=== PATIENT | male | born 2000 | race Caucasian/White ===

== ENCOUNTER 2023-10-10 18:23 | Emergency (ER) | payer BC, SELFPAY ==
--- NOTE | ~2023-10-10 | XR_ITS ---
Lumbosacral Spine: AP and lateral views Clinical History: Pain Findings: The normal lordotic curve is maintained. The vertebral bodies and posterior elements are i ntact. The intervertebral disc spaces are preserved. The sacroiliac joints are normally outlined. Impression: No significant abnormality. Reviewed, dictated and finalized at [facility]. ARTIST Impression: No significant abnormality.
[2023-10-10 18:31] VITALS: BP 137/78; PULSE 77; RESP 18; TEMP 36.9; O2SAT 100
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
== END 2023-10-10 19:30 | disposition home or self-care (01) ==
PROVIDERS: Emergency Provider Nurse Practitioner Family
DX: S39.012A Strain of muscle, fascia and tendon of lower back, initial encounter (principal); S16.1XXA Strain of muscle, fascia and tendon at neck level, initial encounter; V49.40XA Driver injured in collision with unspecified motor vehicles in traffic accident, initial encounter
CPT/HCPCS: 72100; 99213; G0463

== ENCOUNTER 2024-12-23 23:55 | Emergency (ER) | payer BC, SELFPAY ==
--- NOTE | ~2024-12-23 | CT_ITS ---
EXAMINATION: CT abdomen pelvis w con DATE: 12/24/2024 01:33 INDICATION: Right lower quadrant abdominal pain radiating to the testis TECHNIQUE: Computed tomography (CT) of the abdomen and pelvis was performed with 100 mL Omnipaque-350 intravenous contrast. Automated exposure control and iterative reconstruction technique were employe d. The dose-length product was 472.54 mGy-cm. COMPARISON: None FINDINGS: Lung bases are clear. Heart size is normal. No pericardial or pleural effusion. Liver, gallbladder, s pleen, pancreas, bilateral adrenal glands and kidneys are normal. Bowels including the appendix are n ormal. Bladder is normal but with subtle stranding in the surrounding fat.. Prostatomegaly measuring approximately 5.2 x 5.0 x 4.1 cm. Minimal ascites in the deep pelvis. No abscess or free intraperiton eal gas. No pathologically enlarged abdominal or pelvic lymphadenopathy. Mild to moderate lumbar disc height loss most prominent at L4-L5. IMPRESSION: 1. Prostatomegaly, atypical for age with stranding in the fat surrounding the bladder and small amoun t of reactive ascites in the deep pelvis is concerning for possible prostatitis and/or cystitis.. Cor relate with urinalysis. Reviewed, dictated and finalized at location A. IMPRESSION: 1. Prostatomegaly, atypical for age with stranding in the fat surrounding the b ladder and small amount of reactive ascites in the deep pelvis is concerning fo r possible prostatitis and/or cystitis.. Correlate with urinalysis.
--- NOTE | ~2024-12-23 | US_ITS ---
EXAMINATION: US scrotum doppler DATE: 12/24/2024 02:29 INDICATION: Right testicular pain TECHNIQUE: Testicular sonogram utilizing grayscale and Doppler COMPARISON: None. FINDINGS: The right testis measures 4.7 x 2.7 x 3.2 cm. The left testis measures 4.7 x 2.7 x 3.2 cm. Symmetric normal grayscale appearance to both testes. There is normal vascular flow to both testes. The right e pididymis is normal with normal vascular flow. The left epididymis is normal with normal vascular kiel w. There is no hydrocele. Mild left varicocele with vessels dilated to 3 mm. IMPRESSION: 1. Mild left varicocele. Otherwise normal scrotal ultrasound Reviewed, dictated and finalized at location A.
[2024-12-23 23:56] VITALS: BP 124/74; PULSE 101; RESP 20; TEMP 36.4; O2SAT 100
--- OUTSIDE RECORDS SUMMARY | 2024-12-23 23:57 | XMS_ITS | Continuity of Care Document ---
Author Organization [facility] Address [address] [place] [address] Phone Care Team Providers Care Animal Behaviourist Name Role Phone Sparrow OD, Shadi Unavailable Unavailable Procedures Procedure Date Eye Exam & Treatment Refraction Advance Directives Directive Yes / No Effective Date File Name No Information Encounters Encounter Description Practice Location Reason(s) For Visit Diagnoses Date Provider Providers Copied on Encounter [facility], [address], [place], [place], [id number], [place] tel:[phone] [facility] No Information Oct- 5-201 0 Sparrow OD Shadi. [address] , [address], [place], [address], [place]. tel:[phone] Family History Family Member Type Diagnosis Age At Onset No Information Payers Payer name Insurance type Covered green party ID Authoriza tishanthi(s) [employer] Plan [id number] Social History Type Description Quantity Date Captured [...]
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
--- OUTSIDE RECORDS SUMMARY | 2024-12-23 23:57 | XMS_ITS | Referral Summary ---
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
[2024-12-24 00:28] LABS: Basophils Percent Auto 0.5 % (0.2-1.2); Eosinophils Absolute Auto 0.1 K/mm3 (0-0.3); Eosinophils Percent Auto 1.2 % (0-4.4); Hematocrit 42.1 % (42.0-52.0); Immature Granulocyte Absolute 0.03 K/mm3 (0.00-0.031); Immature Granulocyte Percent A 0.4 % (0-0.5); Lymphocytes Absolute Auto 1.86 K/mm3 (0.9-3.2); Mean Corpuscular HGB Conc 33.3 g/dl (32-36); Mean Corpuscular Hemoglobin 30.2 pg (26-34); Mean Corpuscular Volume 90.9 fl (80-100); Mean Platelet Volume 12.5 fl (7.4-10.4); Monocytes Absolute Auto 0.5 K/mm3 (0.1-0.6); Monocytes Percent Auto 6.6 % (2.6-8.5); Neutrophils Absolute Auto 5.5 K/mm3 (1.3-6.7); Neutrophils Percent Auto 68.3 % (45.5-73.1); Platelet Count Result 127 k/mm3 (150-375); Red Blood Count 4.63 M/mm3 (4.6-6.20); Red Cell Distribution Width 12.7 % (11.5-14.5); White Blood Count 8.1 K/mm3 (4.5-10.0)
[2024-12-24 00:31] LABS: Add Urine Microscopic? YES; Appearance Urine Clear (Clear); Bacteria Urine None Seen /hpf; Bilirubin Urine Negative (Negative); Blood Urine Negative (Negative); Color Urine Yellow (Yellow); Glucose Urine UA Negative (Negative); Ketones Urine Negative (Negative); Leukocyte Esterase Ur Negative LEU/UL (Negative); Nitrate Urine Negative (Negative); Non Pathogenic Casts 0-2; Protein Urine Trace mg/dL (Negative); RBC Urine 0-2 /hpf (0-2); Specific Grav Ur 1.023 (1.001-1.035); Squamous Epithelial Cell Urine None Seen /hpf (Few); WBC Urine 0-5 /hpf (0-3); pH Urine 8.5 (5.0-9.0)
[2024-12-24 00:46] LABS: Alanine Aminotransferase 13 U/L (6-50); Albumin Level 4.8 g/dL (3.5-5.1); Alkaline Phosphatase 46 U/L (38-126); Anion Gap 10 mmol/L (4-12); Aspartate Amino Transferase 24 U/L (17-59); Bilirubin,Total 0.9 mg/dL (0.2-1.3); Blood Urea Nitrogen 12 mg/dL (9-20); Calcium 8.9 mg/dL (8.4-10.2); Carbon Dioxide 28 mmol/L (22-30); Chloride 103 mmol/L (98-107); Estimated CRCL calculation 118 ml/min; Estimated Glomerular Filt Rate > 60; Glucose 94 mg/dL (65-110); Lipase 40 U/L (23-300); Potassium 3.8 mmol/L (3.4-5.0); Sodium 141 mmol/L (137-145)
--- OUTSIDE RECORDS SUMMARY | 2024-12-24 00:47 | XMS_ITS | Referral Summary ---
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
--- OUTSIDE RECORDS SUMMARY | 2024-12-24 00:47 | XMS_ITS | Clinical Summary ---
Author Organization [facility] Address [address] [address] Care Team Providers Care Organ Pipe Finisher Name Role Phone Monisha Argueta MD Primary Care Provider [phone] Source Comments [facility],non-owned Affiliates and Associated Physician Practices is amultiple site organization consisting of ambulatory clinics and hospital sitesin [place], [place], [place] and [place]. This disclosure is being madepursuant to the Care Everywhere program and may not contain all information available regarding this patient. 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
--- OUTSIDE RECORDS SUMMARY | 2024-12-24 00:47 | XMS_ITS | Clinical Summary ---
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
--- OUTSIDE RECORDS SUMMARY | 2024-12-24 00:47 | XMS_ITS | Continuity of Care Document ---
Author Organization [facility] Address [address] [place] [address] Phone Care Team Providers Care Dye Line Operator Name Role Phone Sparrow OD, Shadi Unavailable Unavailable Procedures Procedure Date Eye Exam & Treatment Refraction Advance Directives Directive Yes / No Effective Date File Name No Information Encounters Encounter Description Practice Location Reason(s) For Visit Diagnoses Date Provider Providers Copied on Encounter [facility], [address], [place], [place], [id number], [place] tel:[phone] [facility] No Information Oct- 5-201 0 Sparrow OD Shadi. [address], [place], [address], [place]. tel:[phone] Family History Family Member Type Diagnosis Age At Onset No Information Payers Payer name Insurance type Covered green party ID Authoriza tishanthi(s) [employer] Plan [id number] Social History Type Description Quantity Date Captured [...]
--- NOTE | 2024-12-24 04:00 | ED_ITS ---
HPI - General Adult General Chief complaint: Abdominal Pain Stated complaint: stomach pain Time Seen by Provider: 12/24/24 00:02 History of Present Illness HPI narrative: This is a 24-year-old male presenting ED with chief complaint abdominal pain. Patient said he developed pain yesterday went work. Is a intermittently dull and stabbing primarily the right side. Sometimes radiates to his right testicle. It is moderate in intensity comes and goes. He has never had pain like this before. No exacerbating alleviating factors. Associated with some nausea but no vomiting. Denies fevers chills chest pain breathing urinary symptoms or concern for STDs Related Data Allergies Allergy/AdvReac Type Severity Reaction Status Date / Time Penicillins Allergy Unknown Verified 12/23/24 23:56 Exam 2 Narrative: APPEARANCE: No apparent distress. Head: atraumatic. EYES: EOMI, NOSE: Atraumatic NECK: Trachea midline RESPIRATORY: No increased rate of breathing CARDIOVASCULAR: RRR, ABDOMINAL: Soft nontender no guarding or rebound no CVA tenderness exam: Normal external genitalia, normal lie of right testicle tenderness to the posterior aspect. Cremasteric reflex intact. And sign negative. MUSCULOSKELETAl: No obvious deformities NEURO: Alert. Moving 4/4 extremities SKIN:: Warm, dry. Normal color PSYCHIATRIC: Normal affect Course Vital Signs Vital signs: Vital Signs Temperature 97.6 F 12/23/24 23:56 Pulse Rate 101 H 12/23/24 23:56 Respiratory Rate 20 12/23/24 23:56 Blood Pressure 124/74 12/23/24 23:56 Pulse Oximetry 100 12/23/24 23:56 Oxygen Delivery Room Air 12/23/24 23:56 Temperature 97.6 F 12/23/24 23:56 Pulse Rate 101 H 12/23/24 23:56 Respiratory Rate 20 12/23/24 23:56 Blood Pressure 124/74 12/23/24 23:56 Pulse Oximetry 100 12/23/24 23:56 Oxygen Delivery Room Air 12/23/24 23:56 Medical Decision Making [facility] Narrative Medical decision making narrative: -Course: 24-year-old male presenting right abdominal pain and testicular pain. CT abdomen pelvis showed some mildly distended loops of bowel consistent with enteritis. No appendicitis kidney stones or other findings. Scrotal ultrasound negative for torsion. On re-evaluation patient improved without intervention. He has no resting comfortably in bed complaints. Does have some posterior tenderness on his testicle which may represent epididymitis. Be discharged with Motrin Tylenol and a course of antibiotics. He will be given Urology follow-up. Given return precautions for fevers severe abdominal pain testicle pain or any new or worsening symptoms. -DDX includes but is not limited to: Gastroenteritis, colitis, appendicitis, gallbladder disease, urinary tract infection Vital Signs Vital Signs: Vital Signs Temperature 97.6 F 12/23/24 23:56 Pulse Rate 101 H 12/23/24 23:56 Respiratory Rate 20 12/23/24 23:56 Blood Pressure 124/74 12/23/24 23:56 Pulse Oximetry 100 12/23/24 23:56 Oxygen Delivery Room Air 12/23/24 23:56 Temperature 97.6 F 12/23/24 23:56 Pulse Rate 101 H 12/23/24 23:56 Respiratory Rate 20 12/23/24 23:56 Blood Pressure 124/74 12/23/24 23:56 Pulse Oximetry 100 12/23/24 23:56 Oxygen Delivery Room Air 12/23/24 23:56 Lab Data 12/24/24 00:20 12/24/24 00:20 Labs: Lab Results 12/24/24 Range/Units 00:20 WBC 8.1 (4.5-10.0) K/mm3 RBC 4.63 (4.6-6.20) M/mm3 Hgb 14.0 (14.0-18.0) g/dL Hct 42.1 (42.0-52.0) % MCV 90.9 (80-100) fl MCH 30.2 (26-34) pg MCHC 33.3 (32-36) g/dl RDW 12.7 (11.5-14.5) % Plt Count 127 L (150-375) k/mm3 MPV 12.5 H (7.4-10.4) fl Immature Gran % (Auto) 0.4 (0-0.5) % Neut % (Auto) 68.3 (45.5-73.1) % Lymph % (Auto) 23.0 (18.3-44.2) % [place] % (Auto) 6.6 (2.6-8.5) % Eos % (Auto) 1.2 (0-4.4) % Baso % (Auto) 0.5 (0.2-1.2) % Lymph # (Auto) 1.86 (0.9-3.2) K/mm3 [place] # (Auto) 0.5 (0.1-0.6) K/mm3 Eos # (Auto) 0.1 (0-0.3) K/mm3 Baso # (Auto) 0.0 (0.0-0.1) K/mm3 Abs Immat Gran (auto) 0.03 (0.00-0.031) K/mm3 Absolute Neuts (auto) 5.5 (1.3-6.7) K/mm3 Absolute Nucleated RBC 0.000 (0.0-0.012) K/mm3 Nucleated RBC % 0.0 (0.0-0.2) % Sodium 141 (137-145) mmol/L Potassium 3.8 (3.4-5.0) mmol/L Chloride 103 (98-107) mmol/L Carbon Dioxide 28 (22-30) mmol/L Anion Gap 10 (4-12) mmol/L BUN 12 (9-20) mg/dL Creatinine 0.88 (0.7-1.3) mg/dL Estim Creat Clear Calc 118 ml/min Estimated GFR > 60 (59 - ) Glucose 94 (65-110) mg/dL Calcium 8.9 (8.4-10.2) mg/dL Total Bilirubin 0.9 (0.2-1.3) mg/dL AST 24 (17-59) U/L ALT 13 (6-50) U/L Alkaline Phosphatase 46 (38-126) U/L Total Protein 7.0 (6.3-8.2) g/dL Albumin 4.8 (3.5-5.1) g/dL Lipase 40 (23-300) U/L Urine Color Yellow (Yellow) Urine Appearance Clear (Clear) Urine pH 8.5 (5.0-9.0) Ur Specific [place] 1.023 (1.001-1.035) Urine Protein Trace (Negative) mg/dL Urine Glucose (UA) Negative (Negative) mg/dL Urine Ketones Negative (Negative) mg/dL Ur Blood (Man) Negative (Negative) Urine Nitrate Negative (Negative) Urine Bilirubin Negative (Negative) Urine Urobilinogen 1.0 (<2.0) mg/dL Leukocyte Esterase Rfl Negative (Negative) MEENA/UL Urine RBC 0-2 (0-2) /hpf Urine WBC 0-5 (0-3) /hpf Ur Squamous Epith Cells None seen (Few) /hpf Urine Bacteria None seen /hpf Urine Casts 0-2 Discharge Plan Discharge Clinical Impression: Abdominal pain, Pain in testicle Patient Disposition: Home Condition: Stable Instructions: Antibiotic Form, Abdominal Pain (ED) Additional Instructions: You were seen in the emergency department for abdominal pain and testicle pain. Your imaging of the abdomen and testicles was reassuring. Please can use Motrin and Tylenol for pain. Please complete a course of antibiotics and follow-up with the urologist listed below. Return if you develop fevers, severe abdominal pain, testicle pain or any new worsening symptoms. Patient Language: Serbian Prescriptions: New levofloxacin 500 mg tablet 500 mg PO DAILY Qty: 10 0RF acetaminophen 500 mg tablet 1,000 mg PO TID PRN (Reason: sidra) 7 Days Qty: 42 0RF ibuprofen 800 mg tablet 800 mg PO TID PRN (Reason: pain) 7 Days Qty: 21 0RF No Action methocarbamol 500 mg tablet 500 mg PO Q6H PRN (Reason: muscle pain/spasm) Qty: 30 0RF ibuprofen 600 mg tablet 600 mg PO Q6H PRN (Reason: pain) Qty: 30 0RF Follow-up/Referrals: PHYSICIAN,SUPERVISOR [employer]LESS [employer]HICLE [Primary Care Provider] - Arnoldo Abdi MD [Physician] - 1 Week (Testicle pain )
[2024-12-24] MEDS: cefTRIAXone 1 GM VIAL 0.5 GM IM (04:26)
[2024-12-24] MEDS: LIDOCAINE 1% LOCAL INJ 10 ML VIAL (04:26)
[2024-12-24 05:46] LABS: Chlamydia trachomatis NOT DETECTED (NOT DETECTE); Neisseria gonorrhoeae PCR NOT DETECTED (NOT DETECTE)
[2024-12-24 07:20] LABS: Trichomonas Vag PCR NOT DETECTED (NOT DETECTE)
== END 2024-12-24 04:35 | disposition home or self-care (01) ==
PROVIDERS: Emergency Provider Emergency Medicine
DX: R10.9 Unspecified abdominal pain (principal); N50.811 Right testicular pain
CPT/HCPCS: 36415; 74177; 76870; 80053; 81001; 83690; 85025; 87491; 87591; 87661; 93976; 96372; 99284; J0696; J2003; Q9967

== ENCOUNTER 2025-04-24 12:12 | Outpatient (CLI) | payer BC, SELFPAY ==
--- OUTSIDE RECORDS SUMMARY | 2009-11-22 10:30 | XMS_ITS | Continuity of Care Document ---
Author Organization [facility] Address [address] [place] [address] Phone Care Team Providers Care Explosion Welder Name Role Phone Sparrow OD, Shadi Unavailable Unavailable Procedures Procedure Date Eye Exam & Treatment Refraction Advance Directives Directive Yes / No Effective Date File Name No Information Encounters Encounter Description Practice Location Reason(s) For Visit Diagnoses Date Provider Providers Copied on Encounter [facility], [address], [place], [place], [id number], [place] tel:[phone] [facility] No Information Oct- 5-201 0 Sparrow OD Shadi. [address] , [address], [place], [address], [place]. tel:[phone] Family History Family Member Type Diagnosis Age At Onset No Information Payers Payer name Insurance type Covered constitution party ID Authoriza tishanthi(s) [employer] Plan [id number] Social History Type Description Quantity Date Captured Comments Sex Male Smoking Status No Information Chief Complaint And Reason For Visit No Information Reason For Referral Reason For Referral No Information History Of Present Illness Encounter Date Complaint History Of Prese nt Illness No Information Functional Status Date Functional Assessmen t No Information Instructions Date Instruction Additional Infor mation No Information Assessments Type Assessment Date No Information Patient Care Teams Name Effective Dates (start - stop) Status Members No Information
--- OUTSIDE RECORDS SUMMARY | 2025-04-24 12:28 | XMS_ITS | Clinical Summary ---
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 Gender Identity Not on file Sexual [...] 3:17 PM CDT Height 188 cm (6' 2) 2023 3:17 PM CDT Body Mass Index [...] 01/05/2008, 04/09/2004, Additional history exists Influenza Vaccine (#1) 2025 07/25/2019 Hepatitis B Screening Completed 01/05/2004 , 01/05/2004, 04/10/2003, Additional history exists Pneumococcal vaccine <65 Completed 004, 06/12/2003, 04/10/2003, Additional history exists Varicella Vaccines Completed 01/05/2008, 04/09/2004 [place] Care Teams Frame Straightener Relationship Specialty Start Date End Date Monisha Argueta MD [address] [place] [address] PCP - General Pediatrics 11/10/18
--- OUTSIDE RECORDS SUMMARY | 2025-04-24 12:28 | XMS_ITS | Clinical Summary ---
Author Organization [facility] [employer] Address [address] [place] [address] Care Team Providers Care Gas Mask Inspector Name Role Phone Monisha Argueta MD Primary Care Provider Source Comments [facility],non-owned Affiliates and Associated Physician Practices is amultiple site organization consisting of ambulatory clinics and hospital sitesin [place], [place], [place] and [place]. This disclosure is being madepursuant to the Care Everywhere program and may not contain all information available regarding this patient. 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 Gender Identity Not on file Sexual Orientation [...] season) 2024 DEPRESSION SCREENING 08/31/2024 INFLUENZA VACCINE (#1) 2025 ZOSTER VACCINE (1 of 2) 2052 HIB VACCINE Aged Out No longer eligi ble based on patient's age to complete this topic MENINGOCOCCAL GROUPS A/C/Y/W VACCINE Aged Out No longer eligible b ased on patient's age to complete this topic PNEUMOCOCCAL VACCINE Aged Out No long er eligible based on patient's age to complete this topic Insurance RAMÓN ANTHEM ANTHEM Care Teams Gas Mask Inspector Relationship Specialty Start Date End Date Monisha Argueta MD [address] [place] [address] PCP - General Pediatrics 06/25/18
== END 2025-04-24 12:13 | disposition home or self-care (01) ==
LOC: ANHSURGERY 12:17
PROVIDERS: Visit Provider Surgery
DX: Q64.4 Malformation of urachus (principal)
CPT/HCPCS: 36415; 86850; 86900; 86901

== ENCOUNTER 2025-04-26 00:19 | Day surgery (SDC) | payer BC, SELFPAY ==
--- NOTE | 2025-04-21 15:13 | PC.NURSE ---
Report to the Outpatient Waiting Room, entrance under the green pavilion located off [facility], at time __10:30 AM on date ___04/26/25____. Planned Procedure Time: _12:300 PM .? Time changes happen often and if your time is changed the preop area will call you the afternoon before. - You and your visitor will be asked to self-screen and do not enter if you have any COVID symptoms. Please call surgeon if you need to reschedule. - A mask is optional within the hospital at this time. Patients may have clear liquids (water, carbonated beverages, clear teas, apple juice) until 3 hours prior to surgery ( 9:30 AM) with a maximum of 20 ounces. - No food from midnight until time of surgery and no smoking, or chewing tobacco (or any form of nicotine). No chewing gum, candy or mints. Take only the following medications with a SIP of water on the morning of surgery: NONE DO NOT STOP ANY OF YOUR OTHER PRESCRIPTION MEDICATIONS PRIOR TO SURGERY EXCEPT THE FOLLOWING Hold all vitamins and supplements for 3 days per anesthesiologist. Medications to discontinue per physician NONE Please no make-up, nail citizen of [place], hairspray, perfume, deodorant, or body powder the day of surgery.? No jewelry (including any body piercings) or valuables the day of surgery, leave them at home.? Please take a shower or bath the night before, or the morning of, surgery with an antibacterial soap.? Wear comfortable, loose fitting clothing.? Children are encouraged to wear pajamas. - Jewelry must be removed prior to entering the operating room.? Rings and piercings that are not removed may be cut off. - The hospital will not accept responsibility for valuables.? - Please leave all valuables, including medications, at home the day of surgery. If you are going home after surgery, a licensed tow truck driver must drive you home.? - NO public transportation without another adult if you receive anesthesia. - We recommend that an adult stay with you for 24 hours following discharge. - We also recommend that you do not drive, make important decision, drink alcoholic beverages, or take any drugs that were not prescribed by your health care provider for at least 24 hours after your discharge time. For Pediatric surgeries, we recommend two adults accompany the child home. Follow any additional instructions given to you from your surgeon. Telephone instructions given to __PATIENT and asked if any additional questions and then verbalized understanding. Patient advised to call surgeon office or pre surgery nurse liaison [phone] if any additional questions.
[2025-04-21 15:20] VITALS: BMI 20.5
--- NOTE | 2025-04-25 13:51 | P.SS_ITS ---
Same Day Admit/Disch: HPI History of Present Illness Chief complaint: Urachal Cyst Narrative: Yehuda Goldberg is a 24 year old male Who was experiencing umbilical drainage along with lower abdominal pain and testicular pain last November. He went to the emergency room on December [address] scan was done. This showed some suggestion of prostatitis but also showed an abdominal wall mass just deep to the umbilicus that was calcified. Patient had a scrotal ultrasound which was negative for torsion and showed a mild left varicocele. Patient has seen urology, Dr. Ten Adrian, who felt the abdominal wall mass to be a urachal cyst. He did not feel that the urachal cyst communicated with the urinary bladder. The patient was then referred to me. Patient states he had the severe abdominal and testicular pain for 1-2 weeks along with drainage from umbilicus. He reports the pain and drainage has since improved and is only intermittent. I reviewed the CT scan and the cystic lesion appears to be about 2.5 cm in craniocaudad dimension and 1 cm wide. Patient is taken to surgery now for robotic laparoscopic removal of urachal cyst. [facility] Surgical History Surgical History Hx of tonsillectomy 2008 Family History Family History Mother Hypertension Grandparent Hypertension Social History Social History Smoking status: Never smoker Alcohol intake: current Drinks per week: 4 Alcohol use details: ONE DRINK/MONTH Substance use: never Substance use type: does not use Do You Feel Safe in your Home?: Yes Lack of Transportation: No Lack of Food: Never True Current Housing: I Have Housing Concerned About Future Housing: Decline to Answer Difficulty Paying Gas/Electric Bills: Decline to Answer Difficulty Paying for Meds: Decline to Answer Currently Unemployed: No Education: High School Diploma/GED Difficulty w/ Childcare or Family Care: No Living arrangements: with family Occupation/Education: occupation Spiritual care concerns: No Agree to blood products: Yes Same Day Admit/Disch: Med Pre-admit Medications Home Medications ?Medication ?Instructions ?Recorded ?Confirmed ?Type ketorolac 10 mg tablet 10 mg PO Q6H 4 days #16 tabs 04/26/25 Rx oxycodone-acetaminophen 5 mg-325 0.5 - 1 tablet PO Q4H PRN pain #14 04/26/25 Rx mg tablet (Percocet) tabs Review of Systems Review of Systems All systems reviewed & are unremarkable except as noted in HPI and below ( HPI) Exam Const: General: comfortable, no acute distress, alert and awake Nutritional Appearance: well nourished and thin HENMT: Head: normocephalic and atraumatic Mouth: Yes Normal oral and palatal mucosa present Eyes: Conjunctivae: conjunctivae normal Pupils: Equal, round and reactive pupils present EOM: EOMs intact bilaterally Neck: Neck: normal visual inspection, no lymphadenopathy and nontender Resp: Effort & Inspection: normal respiratory effort Auscultation: clear to auscultation bilaterally Cardio: Rate: regular rate Rhythm: regular rhythm Heart sounds: no gallops, no murmurs and no rubs GI: Inspection: non-distended, scaphoid and no visible herniation GI Palp: Yes Soft to palpation, No Tenderness to palpation present (GI), No Hepatomegaly present, No Splenomegaly present, No Hernia present, No Palpable mass present and Yes Other GI palpation findings present ( umbilicus is normal with no drainage) Skin: Lesions: no lesions Rashes: no rashes Neuro: General: no focal motor deficits and CN's II-XI intact bilaterally Cranial nerves: Yes Equal, round and reactive pupils present, Yes Bilaterally intact EOM present, Yes facial symmetry and Yes Midline tongue present Speech: normal speech Motor exam (neuro): 5/5 motor strength present throughout and Motor abnormalities not present Extrem: General: no clubbing, cyanosis or edema and edema Psych: Affect: normal affect Thought process: Normal thought process present Insight: Good insight present (Psych) DS: Summary Time Spent with Patient Time attestation: Total time spent providing and/or coordinating discharge services: DS: Admitting Diagnosis Discharge Date 04/26/2025 Admitting Diagnosis * urachal cyst - plan is to proceed with robotic laparoscopic removal of the cyst under general anesthesia as an outpatient. I discussed the nature of urachal cyst and the nature of removal. I also explained that this is not a common procedure and in fact is fairly rare. Patient advised that the cyst sometimes has an attachment to the urinary bladder. Dr. Adrian did not feel it had this attachment so most likely no attachment present in this case. The cyst will be adherent to the umbilical skin and abdominal wall fascia. Removal will likely involve removal of umbilical skin and subsequent repair of skin. It may result in deformity or abnormal shape of umbilicus. Also there may be loss of the connective tissue integrity of the abdominal wall. If so, this will require repair and possibly mesh similar to an umbilical hernia repair. The urachal cyst probably was infected when he went to ER, but does not seem to be now. I also explained that if left in place, these can become malignant. So I have recommended a robotic resection urachal cyst to be done under general anesthesia as an outpatient. Procedure risks, benefits, indications, and expected outcomes were discussed with the patient in detail. Recurrent infections are also common. All questions were answered. Patient would like to proceed. 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 Thurman Discharge Plan Discharge Patient Disposition: Home Discharge Instructions: * Ambulate 3-4 x per day and as tolerated. * No lifting over 15-20lbs. * May shower tomorrow over umbilical dressing. OK to wash over left flank wounds with soap in shower. * Stairs are OK. * May drive a car in 3 days. * Remove dressing to umbilicus on Thursday. May leave open unless there is drainage. If drainage, loosely pack some gauze into umbilicus, put rest of gauze over umbilicus and tape in place. When dressing is off on Thursday, and daily thereafter, can shower and wash over umbilical wound with soap as well. * Call for persistent drainage or bleeding, severe bruising or swelling, severe pain, Temp over 100.5 degrees, or other significant change in condition. Patient Language: Welsh Stand Alone Forms: General Discharge Instructions, Work/School Release IP Follow-up/Referrals: Carter Thurman MD [Physician, General Surgery] - 05/04/25 Referral Note: Call Dr. Hernandez office to be seen on , 05/04/2025 Discharge Medications: New ketorolac 10 mg tablet 10 mg PO Q6H 4 Days Qty: 16 0RF oxycodone-acetaminophen [Percocet] 5-325 mg tablet 0.5 - 1 tablet PO Q4H PRN (Reason: pain) Qty: 14 0RF
[2025-04-26] VITALS (8 sets, daily range): BP systolic 117–141; BP diastolic 72–95; PULSE 66–93; RESP 14–20; TEMP 36.5–36.6; O2SAT 99–100
--- NOTE | 2025-04-26 12:46 | WPDHPUPDATE1 ---
History and Physical Update Update Date/Time: 04/26/25 12:46 History and Physical has been reviewed, including an updated exam of the patient. There are NO changes in the patient's condition. Risks, benefits, and alternatives have been discussed and questions answered. Patient agrees to proceed with procedure.
--- NOTE | 2025-04-26 12:50 | P.PNAN_ITS ---
Anes - Initial Pre Proc Eval Procedure: Operation Date: 04/26/25 12:30 Proposed Procedures p Robotic Resection Of Urachal Cyst - Carter Thurman MD Date/Time: 04/26/25 12:50 Surgeon: Carter Thurman MD Pre Op Diagnosis: Urachal Cyst Patient Data Age: 24 Gender: M Height: 1.88 m Weight: 73.1 kg Last Vital Signs Temp 36.5 C 04/26/25 10:20 Pulse 67 04/26/25 10:20 Resp 16 04/26/25 10:20 BP 122/72 04/26/25 10:20 Pulse Ox 100 04/26/25 10:20 O2 Del Method Room Air 04/26/25 10:20 Allergies Allergy/AdvReac Type Severity Reaction Status Date / Time Penicillins Allergy Mild Rash Verified 04/26/25 10:19 Home Medications ?Medication ?Instructions ?Recorded ?Confirmed ?Type No Home Medications 02/13/25 04/21/25 H istory Patient hx anesthesia problems: none Family hx anesthesia problems: none Results Review: All pre-operative results and documents have been reviewed as part of the pre- operative evaluation. [facility] Surgical History Surgical History Hx of tonsillectomy 2008 Family History Family History Mother Hypertension Grandparent Hypertension Social History Social History Smoking status: Never smoker Alcohol intake: current Drinks per week: 4 Alcohol use details: ONE DRINK/MONTH Substance use: never Substance use type: does not use Do You Feel Safe in your Home?: Yes Lack of Transportation: No Lack of Food: Never True Current Housing: I Have Housing Concerned About Future Housing: Decline to Answer Difficulty Paying Gas/Electric Bills: Decline to Answer Difficulty Paying for Meds: Decline to Answer Currently Unemployed: No Education: High School Diploma/GED Difficulty w/ Childcare or Family Care: No Living arrangements: with family Occupation/Education: occupation Spiritual care concerns: No Agree to blood products: Yes Anes - Eval Final PreProcedure Day of Procedure 04/26/25 12:50 Patient weight: normal Heart: regular rate and rhythm Lungs: clear to auscultation Airway: Mallampati scale class II Neurological: alert and oriented Last oral intake: >/= 8 hours ASA classification: I Emergent: no Anesthetic plan: proceed Anesthesia type and monitoring: general ETT and standard monitoring Results Review: All pre-operative results and documents have been reviewed as part of the pre- operative evaluation. Informed Consent: The patient's anesthetic plan and its attendant risks and benefits were discussed with the patient/family/POA. Questions were solicited and answers provided to the satisfaction of the patient/family/POA.
--- NOTE | 2025-04-26 13:00 | SUR.PREOP ---
pt and family updated on time delay
[2025-04-26] MEDS: ceFAZolin 2 GM in SODIUM CHLORIDE 0.9% IV 50 ML 100 ML IVPB (13:20)
[2025-04-26] MEDS: BUPIVACAINE/EPINEPHRINE 0.5% 50 ML VIAL 23 ML INFILTRATE (13:48)
--- NOTE | 2025-04-26 14:39 | S_PTH ---
PATIENT: Yehuda Goldberg LOC: [facility] U#:[id number] AGE/SX: 24/M ROOM: RE04/26/[address]: Carter Thurman MD : 2000 BED: DIS: 04/26/2025 SPEC #: [id number] RECD: 04/27/25 07:33 STATUS: JYOTI REQ #: [id number] MANASA: 04/26/25 14:[address]: Carter Thurman DEPT: [facility] Surgical RECD BY: Farrah Rey ENTERED: 04/27/25 07:34 SP TYPE: Surgical OTHR DR: AIDS NURSE PHYSICIAN Tissues: A - Cyst Procedures: Hematoxylin and Eosin Stain Gross and Microscopic Level 4
--- NOTE | 2025-04-26 15:38 | W.PM.PROC2 ---
Procedure Note - Detailed Date of Procedure 04/26/25 Pre-op Diagnosis Urachal Cyst Post-op Diagnosis Same Procedure Performed Robotic laparoscopic removal urachal cyst Surgeon Carter Thurman MD Lead [employer] Developer Radha SALCIDO Anesthesia General and Local Indications Patient has been having umbilical drainage and pain. This improved but imaging showed him to have calcified lesion directly under the umbilicus. He was evaluated by Urology who felt that this was a urachal cyst but there was no communication with the urinary bladder. I saw him in the office. He is taken to surgery now for robotic removal urachal cyst. Drainage has been sporadic and infrequent the last few weeks Findings Anterior abdominal wall mass about 2-3 cm and attached to the umbilical skin; no extension toward the bladder seen Description of Procedure Patient was taken to surgery and induced into general anesthesia. The abdomen is prepped and draped. The table was flexed. Robotic trocars were placed in the left side of the abdomen in the usual fashion for an umbilical hernia repair. The robot was brought into the field, docked and instruments positioned. Surgeon went to the robotic console. Dissection started on the left side of the anterior peritoneum just lateral to the preperitoneal fat. I started below the mass and stalk then dissected cephalad. I then started cephalad just beyond the falciform ligament and dissected across the midline and proceeded caudally. In the area of the urachal cyst, I encountered what appeared to be an umbilical hernia. I dissected around this circumferentially at the fascial level. It was very difficult to tell where the umbilical skin stopped. With the help of the surgical 1st environmental services assistant, I was able to see generally where the into the skin was. I tried using just scissors to divide the very distal skin but ended up using cautery as it was very tough and the scissors were not cutting across it. Eventually I entered the umbilical skin and then was able to divide the distal umbilical skin from the of rest of the umbilicus. I then freed the urachal cyst and the remaining umbilical skin from the anterior abdominal wall taking some properitoneal fat with it. Once this was free, the 1st environmental services assistant placed a clamp through the umbilical opening and extracted out through the umbilicus. I then used 4-0 Monocryl suture. The 1st environmental services assistant placed some gentle pressure on the umbilical skin to assist with exposure as well as to maintain pneumoperitoneum. With interrupted subcuticular suture of 4-0 Monocryl, I closed the umbilical skin. It retracted superficial to the midline fascia. I then used 0 Stratafix and closed the midline fascial defect in transverse orientation. One of these suture incorporated the umbilical skin to hopefully minimize space and create an inverted umbilicus. Once the fascial closure was complete, we removed any residual suture and needles. We removed the instruments and undocked the robot. Trocars were removed. Skin wounds were closed with subcuticular 4-0 Monocryl skin suture. The wounds were dressed with Exofin surgical adhesive. The umbilicus was dressed with 4 x 4 gauze and a Tegaderm. Patient was then awakened and taken to recovery in good condition. Sponge needle counts were correct x2. Estimated Blood Loss -5 Drains No Packing No Pathology Yes (Urachal cyst) Complications None Condition Stable Disposition PACU [facility] Billing Surgery - Charge Forward: Surgery Billing (Robotic laparoscopic removal urachal cyst)
[2025-04-26] MEDS: LACTATED RINGERS 1,000 ML 30 ML IV CONT ×2 (15:55)
[2025-04-26] MEDS: fentaNYL CITRATE INJ (*CRX) 100 MCG/2 ML VIAL 25 MCG IV PUSH ×2 (16:19→16:26)
--- NOTE | 2025-04-26 16:30 | SUR.PHASEI ---
1632 Dr. Thurman notified by this RN of umbilicus dressing being saturated. Per MD drainage in expected from that incision site. Per MD request RN removed umbilicus dressing and redressed with xeroform, 4x4s, and tegaderm.
[2025-04-26] MEDS: oxyCODONE HCL (*CRX) 5 MG TAB IR PO (17:04)
== END 2025-04-26 17:40 | disposition home or self-care (01) ==
PROVIDERS: Visit Provider Surgery
PROC: (CPT 51500; principal; 2025-04-26 12:30)
DX: Q64.4 Malformation of urachus (principal); G89.18 Other acute postprocedural pain; Z98.890 Other specified postprocedural states; Z79.891 Long term (current) use of opiate analgesic
CPT/HCPCS: 51500; S2900; 88305; J0690; A9270; J1100; J1171; J2003; J2250; J2405; J2704; J3010; J7120